=== PATIENT | female | born 1945 | race Caucasian/White ===

== ENCOUNTER → 2016-05-14 | Outpatient (CLI) | payer OTHER ==
[~2016-05-14] MED LIST: B-CO1CAP3 PO; CETI10TA84 PO; CHOL200010; DULA0.5I SQ; FLV1; GLIM4TAB2; HMLI SC; LISI20TA3 PO; LUTE20TA; ROSU5TAB PO; TRAM-10 PO; TRIA75TA
--- NOTE | 2016-05-14 08:24 | DIAGNOSTIC IMAGING REPORT ---
LEG LENGTH STUDY CLINICAL HISTORY: Back pain. FINDINGS: An AP radiograph of the lower extremities for a leg length examination is correlated with radiographs of the knees dated 01/19/2014. The skeletal structures are osteopenic. No fracture is identified in the right or left lower extremity. A left knee arthroplasty is new from the 2013 examination. The right lower extremity measures 87.4 cm, and the left lower extremity measures 88.1 cm as measured from the femoral head to the tibial plafond. There is no pelvic tilt identified. Lumbosacral spondylosis and scoliosis is partially imaged. The overlying soft tissues are normal as visualized. There is a nonobstructed abdominal bowel gas pattern. IMPRESSION: Mild leg length discrepancy as above. Electronically signed by: Juarez Thacker M.D. 05/14/2016 8:22 AM Dictated Date/Time: 05/14/2016 8:19 AM
== END | disposition home or self-care (01) ==
LOC: C.RAD 07:40
PROVIDERS: ATTEND Anesthesiology
DX: M54.5 Low back pain (principal)

== ENCOUNTER → 2016-06-12 | Outpatient (CLI) | payer OTHER ==
[2016-06-12 17:38] LABS: BASO % 0.9 %; BASO ABS # 0.06 K/uL (0-0.2); COMPLETE YES; EOS % 4.6 %; HEMATOCRIT 35.5 % (37-47); IG% 0.5 %; LYMPH % 31.7 %; LYMPH ABS # 2.06 K/uL (1.2-3.4); MEAN CELL VOLUME 96.5 fL (80-100); MEAN CORPUSCULAR HEMOGLOBIN 30.7 pg (25-34); MEAN CORPUSCULAR HGB CONC 31.8 g/dl (32-36); MEAN PLATELET VOLUME 9.6 fL (7.4-10.4); MONO % 10.6 %; NEUT % 51.7 %; PLATELET COUNT 212 K/uL (130-400); RED BLOOD COUNT 3.68 M/uL (4.2-5.4)
[2016-06-12 17:46] LABS: ALT/SGPT 25 U/L (12-78); BLOOD UREA NITROGEN 42 mg/dl (7-18); BUN/CREATININE RATIO 27.7 (10-20); CALCIUM 9.2 mg/dl (8.5-10.1); CARBON DIOXIDE 25 mmol/L (21-32); CHLORIDE 107 mmol/L (98-107); GLUCOSE 86 mg/dl (70-99); POTASSIUM 4.9 mmol/L (3.5-5.1); SODIUM 141 mmol/L (136-145)
[2016-06-12 17:48] LABS: ALB/GLOB RATIO 0.9 (0.9-2); ALKALINE PHOSPHATASE 92 U/L (45-117); AST/SGOT 16 U/L (15-37)
[2016-06-13 06:23] LABS: ESTIMATED AVERAGE GLUCOSE 134 mg/dl; HA1C FLAG Normal (Normal)
== END | disposition home or self-care (01) ==
LOC: C.LABBFT 14:04
PROVIDERS: ATTEND Internal Medicine
DX: E11.9 Type 2 diabetes mellitus without complications (principal); N18.3 Chronic kidney disease, stage 3 (moderate)

== ENCOUNTER → 2016-11-19 | Outpatient (CLI) | payer OTHER ==
--- NOTE | 2016-11-19 15:19 | DIAGNOSTIC IMAGING REPORT ---
RIGHT HIP UNILATERAL 2 VIEWS HISTORY: 70 years-old Female chronic right hip pain COMPARISON: None available TECHNIQUE: 2 views of the right hip FINDINGS: Moderate osteoarthritis involves the right hip with prominent osteophytic spurring along the superior lateral aspect of the acetabulum. Enthesophytes are seen at the greater trochanter. No acute fracture or dislocation is identified. Imaged right hemipelvis also appears intact. IMPRESSION: Moderate degenerative changes of the right hip without acute fracture or dislocation. The above report was generated using voice recognition software. It may contain grammatical, syntax or spelling errors. Electronically signed by: Arben Guerrero M.D. 11/19/2016 3:18 PM Dictated Date/Time: 11/19/2016 3:16 PM
== END | disposition home or self-care (01) ==
LOC: C.RADBC 14:36
PROVIDERS: ATTEND Physician Assistant
DX: M25.551 Pain in right hip (principal)

== ENCOUNTER → 2016-12-29 | Outpatient (CLI) | payer OTHER ==
[2016-12-29 15:46] LABS: BASO % 0.8 %; BASO ABS # 0.06 K/uL (0-0.2); COMPLETE YES; HEMATOCRIT 32.4 % (37-47); IG% 0.4 %; LYMPH % 22.8 %; LYMPH ABS # 1.67 K/uL (1.2-3.4); MEAN PLATELET VOLUME 9.2 fL (7.4-10.4); MONO % 6.3 %; NEUT % 65.7 %; PLATELET COUNT 221 K/uL (130-400); RED BLOOD COUNT 3.34 M/uL (4.2-5.4); WHITE BLOOD COUNT 7.31 K/uL (4.8-10.8)
[2016-12-29 15:46] LABS: URINE APPEARANCE CLEAR (CLEAR); URINE BILIRUBIN NEG (NEG); URINE COLOR YELLOW; URINE NITRITE NEG (NEG); URINE PH 6.5 (4.5-7.5); URINE SPECIFIC GRAVITY 1.016 (1.000-1.030); UROBILINOGEN NEG (NEG)
[2016-12-29 15:48] LABS: MANUAL MICROSCOPIC REQUIRED? NO; REVIEW REQ? NO
[2016-12-29 16:07] LABS: BLOOD UREA NITROGEN 34 mg/dl (7-18); BUN/CREATININE RATIO 22.4 (10-20); CALCIUM 9.2 mg/dl (8.5-10.1); CARBON DIOXIDE 26 mmol/L (21-32); CHLORIDE 108 mmol/L (98-107); GLUCOSE 80 mg/dl (70-99); POTASSIUM 4.8 mmol/L (3.5-5.1); SODIUM 138 mmol/L (136-145)
[2016-12-29 16:18] LABS: FERRITIN 219.8 ng/ml (8.0-388.0); TOTAL IRON BINDING CAPACITY 261 mcg/dl (250-450)
[2016-12-30 07:32] LABS: ESTIMATED AVERAGE GLUCOSE 128 mg/dl; HA1C FLAG Normal (Normal)
== END | disposition home or self-care (01) ==
LOC: C.LAB 14:41
PROVIDERS: ATTEND Internal Medicine
DX: E78.5 Hyperlipidemia, unspecified (principal); D64.9 Anemia, unspecified; N18.3 Chronic kidney disease, stage 3 (moderate); N28.9 Disorder of kidney and ureter, unspecified; E11.9 Type 2 diabetes mellitus without complications

== ENCOUNTER → 2017-06-11 | Outpatient (CLI) | payer OTHER ==
[2017-06-11 17:10] LABS: ALBUMIN 3.6 gm/dl (3.4-5.0); BLOOD UREA NITROGEN 46 mg/dl (7-18); CALCIUM 9.7 mg/dl (8.5-10.1); CARBON DIOXIDE 24 mmol/L (21-32); GLUCOSE 99 mg/dl (70-99); POTASSIUM 5.1 mmol/L (3.5-5.1); SODIUM 136 mmol/L (136-145)
[2017-06-11 17:13] LABS: ALKALINE PHOSPHATASE 87 U/L (45-117); ALT/SGPT 27 U/L (12-78); AST/SGOT 18 U/L (15-37); CHOLESTEROL 157 mg/dl (0-200); LDL CHOLESTEROL CALCULATED 85 mg/dl; TOTAL PROTEIN 7.2 gm/dl (6.4-8.2)
[2017-06-12 06:57] LABS: HEMOGLOBIN A1C 6.2 % (4.5-5.6)
== END | disposition home or self-care (01) ==
LOC: C.LABBFT 15:32
PROVIDERS: ATTEND Internal Medicine
DX: E78.5 Hyperlipidemia, unspecified (principal); N18.9 Chronic kidney disease, unspecified; E11.9 Type 2 diabetes mellitus without complications

== ENCOUNTER → 2017-12-10 | Outpatient (CLI) | payer OTHER ==
--- NOTE | 2017-12-13 13:10 | MAMMOGRAPHY REPORT ---
BILATERAL DIGITAL SCREENING MAMMOGRAM TOMOSYNTHESIS WITH CAD: 12/10/2017 CLINICAL HISTORY: Routine screening. Patient has no complaints. TECHNIQUE: The study was acquired using full field digital technology and interpreted from soft copy. Breast tomosynthesis in addition to standard 2D mammography was performed. Current study was also ev aluated with a Computer Aided Detection (CAD) system. COMPARISON: Comparison is made to exams dated: 01/02/2015 mammogram, 06/16/2012 mammogram, 08/19/2009 ma mmogram, 08/05/2009 mammogram - [facility], and 12/20/2007. BREAST COMPOSITION: There are scattered areas of fibroglandular density in both breasts. FINDINGS: There are grouped calcifications within the right inferior breast at approximately 5 to 6:00, for whi ch spot magnification views are recommended for further evaluation. The remainder of both breasts are stable compared to prior exams, without suspicious masses, calcific ations, or areas of architectural distortion noted. Left breast nodularity is stable compared to marilou or exams. IMPRESSION: ACR BI-RADS CATEGORY 0: INCOMPLETE EVALUATION: NEED ADDITIONAL IMAGING EVALUATION Right breast calcifications, for which additional imaging evaluation is recommended. The patient rodolfo l be called to schedule an appointment. Some breast cancers are not detected with mammography. A negative mammographic report should not eileen y biopsy if a clinically suggestive mass is present. Bernarda Montiel M.D. ah/:12/10/2017 15:54:16 Studio Associate: Olena Barboza, RT(R)(M), [facility] letter sent: Addl Imaging 0 BI-RADS Code: ACR BI-RADS Category 0: Incomplete Evaluation: Need Additional Imaging Evaluation
== END | disposition home or self-care (01) ==
LOC: C.MAMM 14:41
PROVIDERS: ATTEND Internal Medicine
DX: Z12.31 Encounter for screening mammogram for malignant neoplasm of breast (principal); R92.1 Mammographic calcification found on diagnostic imaging of breast

== ENCOUNTER 2018-05-11 08:02 | Observation (INO) ==
--- NOTE | 2018-04-29 15:18 | PAT Medication Instructions ---
Medication Instructions Date of Service April 29, 2018 Home Medications B-complex with vitamin C capsule 1 cap PO HS cetirizine 10 mg tablet 5 mg PO DAILY PRN dulaglutide 1.5 mg/0.5 mL 1.5 mg SQ .WEDNESDAY ml folic acid 1 mg tablet 1 mg PO HS glimepiride 4 mg tablet 4 - 6 mg PO HS tab insulin lispro (U-100) 100 unit/mL 5 units SQ BID PRN ml lisinopril 20 mg tablet 20 mg PO HS lutein 20 mg tablet 20 mg PO HS rosuvastatin 5 mg tablet 2.5 mg PO 4XWK tab tramadol 50 mg tablet 50 mg PO Q6H PRN dicyclomine 10 mg capsule 10 mg PO QID PRN cap cholecalciferol (vitamin D3) 5,000 unit PO 3XWK hydrochlorothiazide 50 mg PO HS lorazepam 1 - 2 tab PO HS PRN Continue as directed dulaglutide 1.5 mg/0.5 mL 1.5 mg SQ .WEDNESDAY ml rosuvastatin 5 mg tablet 2.5 mg PO 4XWK tab STOP taking 2 weeks before surgery (or as soon as possible if surgery is within 2 weeks) lutein 20 mg tablet 20 mg PO HS DO NOT take the morning of surgery cetirizine 10 mg tablet 5 mg PO DAILY PRN insulin lispro (U-100) 100 unit/mL 5 units SQ BID PRN ml dicyclomine 10 mg capsule 10 mg PO QID PRN cap cholecalciferol (vitamin D3) 5,000 unit PO 3XWK Take morning of surgery With a small sip of water, OTHERWISE NOTHING TO EAT OR DRINK AFTER MIDNIGHT: tramadol 50 mg tablet 50 mg PO Q6H PRN (okay to take up to 4 hours prior to surgery if needed) Take evening before surgery B-complex with vitamin C capsule 1 cap PO HS cetirizine 10 mg tablet 5 mg PO DAILY PRN (if needed) folic acid 1 mg tablet 1 mg PO HS glimepiride 4 mg tablet 4 - 6 mg PO HS tab insulin lispro (U-100) 100 unit/mL 5 units SQ BID PRN ml lisinopril 20 mg tablet 20 mg PO HS tramadol 50 mg tablet 50 mg PO Q6H PRN (if needed) dicyclomine 10 mg capsule 10 mg PO QID PRN cap (if needed) hydrochlorothiazide 50 mg PO HS lorazepam 1 - 2 tab PO HS PRN (if needed) Other Notes If you have any questions please call us at [phone] or [phone] or [phone] or [phone]
--- NOTE | 2018-05-02 13:54 | Anesthesiology Consultation ---
Date of Service May 02, 2018 Assessment & Plan (1) Encounter for pre-operative examination: Chart Review Chart Review: Acceptable Risk for Surgery and Patient seen in Pre Admission Testing Consults Requested none Teaching & Discussion Pre-Anesthesia Teaching/Discussion Notes: Instructed NPO after midnight before surgery, except medications with 15 cc of water. Medication instructions provided according to the PAT guidelines. History Surgery Operation Date: 05/11/18 11:00 Proposed Procedures p Right Breast Lumpectomy with Needle Localization and with Right [place] Lymph Node Biopsy (Injection Only) - Cliff Fang MD, FACS Height/Weight Height: 5 ft 4 in Weight: 108.6 kg Allergies Allergy/AdvReac Type Severity Reaction Status Date / Time Penicillins Allergy Mild RASH Verified 04/29/18 11:26 insulin detemir Allergy Unknown ANAPHYLAXIS Verified 04/29/18 11:26 insulin glargine Allergy Unknown ANAPHYLAXIS Verified 04/29/18 11:26 phenol Allergy Unknown ANAPHYLAXIS Verified 04/29/18 11:26 NSAIDS (Non-Steroidal AdvReac Severe GI Verified 04/29/18 11:26 Anti-Inflamma SYMPTOMS-GI BLEED Vlsykcm-Rzt-Fkt Reductase AdvReac Mild OTHER Verified 04/29/18 11:26 Inhibitor Medications Home Medications Medication Instructions Recorded Confirmed Last Taken B-complex with vitamin C capsule 1 cap PO HS 04/05/18 04/29/18 Unknown cetirizine 10 mg tablet 5 mg PO DAILY PRN 04/05/18 04/29/18 Unknown dulaglutide 1.5 mg/0.5 mL 1.5 mg SQ .WEDNESDAY ml 04/05/18 04/29/18 Unknown subcutaneous pen injector folic acid 1 mg tablet 1 mg PO HS 04/05/18 04/29/18 Unknown glimepiride 4 mg tablet 4 - 6 mg PO HS tab 04/05/18 04/29/18 Unknown insulin lispro (U-100) 100 unit/mL 5 units SQ BID PRN ml 04/05/18 04/29/18 Unknown subcutaneous cartridge lisinopril 20 mg tablet 20 mg PO HS 04/05/18 04/29/18 Unknown lutein 20 mg tablet 20 mg PO HS 04/05/18 04/29/18 Unknown rosuvastatin 5 mg tablet 2.5 mg PO 4XWK tab 04/05/18 04/29/18 Unknown tramadol 50 mg tablet 50 mg PO Q6H PRN 04/05/18 04/29/18 Unknown dicyclomine 10 mg capsule 10 mg PO QID PRN cap 04/07/18 04/29/18 Unknown cholecalciferol (vitamin D3) 5,000 unit PO 3XWK 04/29/18 04/29/18 Unknown [Vitamin D3] hydrochlorothiazide 50 mg PO HS 04/29/18 04/29/18 Unknown lorazepam 1 - 2 tab PO HS PRN 04/29/18 04/29/18 Unknown Past Medical History Medical History Osteoarthritis (Chronic) Chronic lumbar pain (Chronic) Greater trochanteric bursitis of both hips (Chronic) Myofascial pain (Chronic) Diabetes (Chronic) Chronic kidney disease STAGE 3 GERD (gastroesophageal reflux disease) HTN (hypertension) Hiatal hernia History of hysterectomy STILL HAS OVARIES IBS (irritable bowel syndrome) Leg length discrepancy Lumbar postlaminectomy syndrome Lumbar spondylosis Obesity PONV (postoperative nausea and vomiting) Right hip pain Sacroiliitis Past Surgical History Surgical History H/O arthroscopy of right knee H/O laminectomy L4-5 1975 H/O submucous nasal surgery X2 H/O total knee replacement LEFT H/O total knee replacement RIGHT H/O: hysterectomy History of bunionectomy of left great toe History of bunionectomy of left great toe History of colonoscopy History of dental surgery History of lumbar laminectomy History of sinus surgery History of tonsillectomy Past Anesthesia History No Hx of Anesthesia Complications and No Family Hx of Anesthesia Complications History of PONV Yes Motion Sickness Screening History of Motion Sickness: No Social History Smoking Status: Former smoker Do You Dip or Chew Tobacco: No Smoking End Date: QUIT 25-30 YEARS AGO Hx Alcohol Use: No Hx Substance Use: No substance use type: does not use Exercise / Class Metabolic Activity II 4-5 Yardwork/Stairs/Walk up hill (Able to climb FOS, laundry, dishes, yardwork, etc. Denies CP. Occasional SOB with excessive amounts of stairs. ) Review of Systems Patient denies chest pain, shortness of breath, reflux, cough, wheezing, palpitations. +BARRETT (with large amounts of stairs) +joint pain (back, hips, knees) Physical Exam Vital Signs BP: 138/79 P: 75 R: 14 T: 98.3 SPO2: 100% on RA ENMT Thyromental Distance: > or= 3.5 Finger Breadths (3.5) Mallampati Class: III Temporary partial plate on top due to implants she just had put in Neck normal visual inspection and trachea midline; neck extension not limited Respiratory normal respiratory effort Auscultation: lungs clear to auscultation bilaterally Cardiovascular Rate/Rhythm: regular rate and regular rhythm Heart Sounds: no murmur Vessels: no carotid bruit Psychiatric Orientation: alert and oriented x 3 Testing Electrocardiogram Date: 05/02/18 Findings: + NSR @ (72) When compared with ECG of 01/20/96, ventricular rate has decreased by 41bpm. Laboratory Results 05/02/18 14:32 05/02/18 14:32 Laboratory Tests 04/12/18 14:33 Hemoglobin A1c 6.5 H Going back several years, pts H/H and BUN/Cr are at baseline per [facility] records.
[2018-05-02 14:54] LABS: Basophils # (auto) 0.06 K/uL (0-0.2); Basophils % (auto) 0.7 %; Eosinophils % (auto) 3.6 %; Hematocrit (blood only) 34.1 % (37-47); Hemoglobin 10.8 g/dL (12.0-16.0); Immature Granulocytes # (auto) 0.08 K/uL (0.00-0.02); Lymphocytes # (auto) 2.22 K/uL (1.2-3.4); Lymphocytes % (auto) 26.7 %; Mean Corpuscular Hgb Conc 31.7 g/dL (32-36); Mean Corpuscular Volume 97.7 fL (80-100); Monocytes # (auto) 0.53 K/uL (0.11-0.59); Monocytes % (auto) 6.4 %; Neutrophils # (auto) 5.11 K/uL (1.4-6.5); Neutrophils % (auto) 61.6 %; Platelet Count 188 K/uL (130-400); RDW Coefficient of Variation 13.7 % (11.5-14.5); RDW Standard Deviation 48.3 fL (36.4-46.3); Red Blood Count 3.49 M/uL (4.2-5.4)
[2018-05-02 15:03] LABS: Calcium 9.3 mg/dl (8.5-10.1); Creatinine Clr Calc Pharmacy 44.1 ml/min; Est GFR (African American) 43.3; Est GFR (Non-African American) 37.4; Potassium 4.5 mmol/L (3.5-5.1)
[~2018-05-11 08:02] MED LIST changes: -B-CO1CAP3 PO; -CETI10TA84 PO; -CHOL200010; +CLINDAMYCIN 900 MG / 50ML D5W IV SCH; -DULA0.5I SQ; -FLV1; -GLIM4TAB2; -HMLI SC; -LISI20TA3 PO; -LUTE20TA; -ROSU5TAB PO; +SODIUM CHLORIDE 0.9% 1000ML IV SCH; -TRAM-10 PO; -TRIA75TA
--- NOTE | 2018-05-11 09:46 | Nuclear Medicine Report ---
LYMPHOSCINTIGRAPHY CLINICAL HISTORY: Right-sided breast cancer. PROCEDURE: Using standard sterile technique, 4 intradermal and one deep injection of 0.5 mCi of Lymph oseek was placed in the right breast. The patient tolerated the procedure well. There were no immedia te complications. The patient was subsequently transported to the surgical suite. No imaging was obta ined at the referring physician's request. IMPRESSION: Injection of 0.5 mCi of Lymphoseek in the right breast. Electronically signed by: Arben Guerrero M.D. 05/11/2018 9:45 AM
--- NOTE | 2018-05-11 10:07 | History & Physical Bridge Note ---
Date of Service May 11, 2018 History & Physical Bridge Note I have examined the patient, reviewed the History & Physical and in the interval since the performance of the History & Physical I have noted the following changes of clinical significance: no changes noted
[2018-05-11] MEDS ORDERED: ePHEDrine sulfate 50 MG/ML AMP IV PRN (10:41)
[2018-05-11] MEDS ORDERED: ATROPINE SULFATE 0.1 MG/ML 10ML SYR IV PRN (10:41)
[2018-05-11] MEDS ORDERED: ISOSULFAN BLUE 10 MG/ML VIAL 5 ML ONE (11:01)
[2018-05-11] MEDS ORDERED: BUPIVACAINE 0.5 % 5 MG/1 ML MPF 30ML VIAL ONE (11:01)
[2018-05-11] MEDS ORDERED: MIDAZOLAM HCL 1 MG/ML 2ML VIAL ONE (11:02)
[2018-05-11] MEDS ORDERED: fentaNYL citrate 100 MCG/2 ML VIAL ONE (11:02)
[2018-05-11] MEDS ORDERED: METHYLENE BLUE 0.5% 10 ML VIAL ONE (11:02)
[2018-05-11] MEDS ORDERED: ONDANSETRON INJ 2 MG/ML 2 ML VIAL ONE (11:35)
[2018-05-11] MEDS ORDERED: LIDOCAINE HCL 2% 2 ML VIAL/AMP(20MG/ML) INFIL ONE (11:35)
[2018-05-11] MEDS ORDERED: PROPOFOL IV EMULSION 10 MG/ML 20 ML VIAL IV ONE (11:35)
--- NOTE | 2018-05-11 12:40 | Operative Report ---
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 Any exceptions are noted below.
[2018-05-11] MEDS: HYDROmorphone INJ 1 MG/ML SYRINGE IV PRN ×4 (12:59→13:22)
[2018-05-11] MEDS ORDERED: ACETAMINOPHEN 1,000 MG/100 ML VIAL IV ONE (13:15)
--- NOTE | 2018-05-11 14:10 | Anesthesiology Progress Note ---
Date of Service May 11, 2018 Anesthesia Post Procedure Vital Signs Vital Signs: Temp Pulse Pulse Resp BP Pulse Ox 05/11/18 14:00 70 12 121/68 94 05/11/18 13:50 69 12 118/68 94 05/11/18 13:40 36.9 C 72 12 124/63 94 05/11/18 13:30 69 12 121/65 95 05/11/18 13:20 70 14 117/69 96 05/11/18 13:10 72 12 119/67 99 05/11/18 13:00 76 12 123/66 100 05/11/18 12:51 36.7 C 85 14 127/70 100 05/11/18 09:51 36.9 C 80 18 128/66 99 Pain Intensity Right Breast: Pain Intensity: 4 Notes Mental Status: alert / awake / arousable Patient Amnestic to Procedure: Yes Nausea / Vomiting: adequately controlled Pain: adequately controlled Airway Patency, RR, SpO2: stable & adequate BP & HR: stable & adequate Hydration State: stable & adequate Anesthetic Complications: no major complications apparent and Pt Satisfied with anesthetic care
[2018-05-11] MEDS ORDERED: LORazepam 0.5 MG TAB PO PRN (14:32)
[2018-05-11] MEDS ORDERED: ONDANSETRON INJ 2 MG/ML 2 ML VIAL IV PRN (14:32)
[2018-05-11] MEDS ORDERED: SODIUM CHLORIDE 0.9% 500 ML IV SCH (14:32)
[2018-05-11] MEDS ORDERED: HYDROmorphone INJ 0.5 MG/0.5 ML SYR IV PRN (14:32)
[2018-05-11] MEDS ORDERED: PROMETHAZINE HCL 12.5 MG in SODIUM CHLORIDE 0.9% 50 ML IV PRN (14:32)
[2018-05-11] MEDS ORDERED: ACETAMINOPHEN 325 MG TAB PO PRN (14:32)
[2018-05-11] MEDS ORDERED: HYDROCODONE/ACETAMOPHEN 5/325MG TAB PO PRN (14:32)
--- NOTE | 2018-05-11 15:04 | Mammography Report ---
NEEDLE LOCALIZATION RIGHT BREAST: 05/11/2018 CLINICAL HISTORY: Biopsy-proven DCIS in the right medial breast at approximately 3:00. PROCEDURE DESCRIPTION: Review of prior imaging shows the biopsied calcifications in the right 3:00 br east which were shown to represent DCIS. Another small cluster of calcifications was seen more later ally in the right breast, for which excision was also recommended. With imaging guidance, aseptic te chnique, and 1% lidocaine as the local anesthetic, a bracketed needle localization was performed of t he biopsy clip and residual calcifications in the right 3:00 breast as well as small cluster of calci fications located in the right central breast, using two 5 cm Segura 2 needles. The path of approach for both areas was caudocranial. The biopsy clip and residual calcifications are located along the distal portion of the wire, anterior to the wire, with the residual calcifications located proximal t o the cricket and the clip located distal to the cricket. The small cluster of calcifications located in t he right central breast is located along the distal portion of the more lateral wire, anterior to the tip of the wire. The needles were left in place. The patient tolerated the procedure without compli cation. COMPARISON: Comparison is made to exams dated: 04/08/2018 mammogram, 04/08/2018 stereotactic biopsy, 1 05/21/2017 mammogram, 12/10/2017 mammogram, 01/02/2015 mammogram, and 06/16/2012 mammogram - [facility]. IMPRESSION: NEEDLE LOCALIZATION Bracketed needle localization of residual calcifications and associated biopsy marker clip in the rig ht 3:00 breast and small cluster of calcifications in the right central breast. Bernarda Montiel M.D. ah/:05/11/2018 08:50:15 Production Broacher: Olena Todd RT(R)(M), [facility]
--- NOTE | 2018-05-11 15:04 | Mammography Report ---
SPECIMEN RIGHT BREAST: 05/11/2018 CLINICAL HISTORY: Status post right breast surgical excision. COMPARISON: Comparison is made to exams dated: 04/08/2018 mammogram, 04/08/2018 stereotactic biopsy, 1 05/21/2017 mammogram, 12/10/2017 mammogram, 01/02/2015 mammogram, and 06/16/2012 mammogram - [facility]. Findings: A radiograph was performed of the right breast surgical specimen. The localized biopsy cli p and calcifications are present within the specimen. Some of the residual calcifications extend sebastián se to one of the edges of the specimen, likely the superior edge of the specimen. Findings were disc ussed with Dr. Fang, and he reports he will be excising additional superior tissue. The intact needl e localization wires and needles are also present. IMPRESSION: SPECIMEN The imaged specimen contains the preoperativelylocalized calcifications and biopsy clip. Bernarda Montiel M.D. /:05/11/2018 12:26:18 Shove Up: RT Xavier(R)(M), [facility]
--- NOTE | 2018-05-11 15:55 | Consultation ---
Date of Consultation May 11, 2018 Assessment & Plan (1) Diabetes type 2, controlled: would not recommend using any insulin while here due to sever, anaphylactic allergy likely discharged tomorrow AM and she can take her Trulicity once home resume home medications on discharge utilize diabetic diet instructed RN that we would not be checking sugars, do not want her to receive insulin (2) Ductal carcinoma in situ (DCIS) of breast: s/p lumpectomy and SLN biopsy follow up with Dr. Fang in the office (3) Chronic lumbar pain: stable (4) HTN (hypertension): stable on lisinopril and HCTZ (5) Dyslipidemia: continue statin History of Present Illness Reason for Consultation: medical management Requesting Physician: Dr. Fang Attending Physician: Cliff Fang MD, [facility] History of Present Illness Patient is 72 yo female with history of DM type II, well controlled on Trulicity and Glimepiride, A1c of 6.1% and a history of HTN, dyslipidemia, presents after having a right breast lumpectomy and sentinel lymph node biopsy today with Dr. Fang. Tolerated procedure well, no complications, minimal blood loss. She has minimal pain currently. Breathing well, no chest pressure, no nausea. Discussed management of diabetes, she would prefer to not have any insulin while here, never needs it at home and she has a history of anaphylaxis with Lantus and Levemir. She has no history of CAD, stroke, arrhythmias. She has a family history of CAD with her father who suffered a heart attack. Allergies Allergy/AdvReac Type Severity Reaction Status Date / Time Penicillins Allergy Mild RASH Verified 05/11/18 09:48 insulin detemir Allergy Unknown ANAPHYLAXIS Verified 05/11/18 09:48 insulin glargine Allergy Unknown ANAPHYLAXIS Verified 05/11/18 09:48 NSAIDS (Non-Steroidal AdvReac Severe GI Verified 05/11/18 09:48 Anti-Inflamma SYMPTOMS-GI BLEED Uomwwna-Bec-Ltn Reductase AdvReac Mild OTHER Verified 05/11/18 09:48 Inhibitor Home Medications Home Medications Medication Instructions Recorded Confirmed Type B-complex with vitamin C capsule 1 cap PO HS 04/05/18 05/11/18 History cetirizine 10 mg tablet 5 mg PO DAILY PRN 04/05/18 05/11/18 History dulaglutide 1.5 mg/0.5 mL 1.5 mg SQ .WEDNESDAY ml 04/05/18 05/11/18 History subcutaneous pen injector folic acid 1 mg tablet 1 mg PO HS 04/05/18 05/11/18 History glimepiride 4 mg tablet 4 - 6 mg PO HS tab 04/05/18 05/11/18 History insulin lispro (U-100) 100 unit/mL 5 units SQ BID PRN ml 04/05/18 05/11/18 History subcutaneous cartridge lisinopril 20 mg tablet 20 mg PO HS 04/05/18 05/11/18 History lutein 20 mg tablet 20 mg PO HS 04/05/18 05/11/18 History rosuvastatin 5 mg tablet 2.5 mg PO 4XWK tab 04/05/18 05/11/18 History tramadol 50 mg tablet 50 mg PO Q6H PRN 04/05/18 05/11/18 History dicyclomine 10 mg capsule 10 mg PO QID PRN cap 04/07/18 05/11/18 History cholecalciferol (vitamin D3) 5,000 unit PO 3XWK 04/29/18 05/11/18 History [Vitamin D3] hydrochlorothiazide 50 mg PO HS 04/29/18 05/11/18 History lorazepam 1 - 2 tab PO HS PRN 04/29/18 05/11/18 History Patient History Family History Other CAD (coronary artery disease) Social History Current Living Situation: Alone Other Information That Helps Us Care for You: No Feels Safe at Home: Yes Safety Concerns: Feels Safe At This Time Smoking Status: Former smoker Do You Dip or Chew Tobacco: No Smoking End Date: QUIT 25-30 YEARS AGO Hx Alcohol Use: No Hx Substance Use: No Beliefs That Will Affect Care: None Preferred Language: Haitian Communication Ability: Effective [place] Farmer Required: No Review of Systems 10 systems reviewed, all negative except for some mild right breast and axillary pain. Denies chest pain, pressure. Denies dyspnea. Physical Exam 2 Vital Signs (Past 24 Hours): Last Vital Signs Temp 37.0 C 05/11/18 15:22 Pulse 68 05/11/18 15:22 Resp 18 05/11/18 15:22 BP 118/73 05/11/18 15:22 Pulse Ox 97 05/11/18 15:22 Constitutional: WD/WN, vitals as above Eyes: PERRL, conjunctivae normal, anicteric sclerae ENMT: external ear and nose normal, oropharynx normal Neck: trachea midline, no thyromegaly Respiratory: normal respiratory effort, lungs clear to auscultation Cardiovascular: RRR, no murmur, no edema Chest (Breasts): Breast: + breast tenderness; + abnormal inspection of breast (dressing applied to incision of lumpectomy) and + abnormal inspection of axilla (dressing applied) Gastrointestinal (Abdomen): normal bowel sounds, soft, nontender, no hepatosplenomegaly Musculoskeletal: no cyanosis or clubbing, extremities motor strength 5/5 Skin: no rashes, warm and dry Neurologic: patellar DTR's 2+ bilat, sensation intact and PERRL, EOMI, accommodation nl, no face palsy, no dysarthria Psychiatric: A+Ox3, euthymic affect Lymphatic: no cervical or axillary lymphadenopathy Results & Data Medications Administered Current Inpatient Medications Acetaminophen (Tylenol) 650 mg PO Q4H PRN PRN Reason: Pain Stop: 06/10/18 14:31 Hydrocodone Bitart/Acetaminophen ([place] 5/325) 1 tab PO 3XDQ4 PRN PRN Reason: Pain Stop: 05/25/18 14:31 Hydrocodone Bitart/Acetaminophen ([place] 5/325) 2 tab PO 3XDQ4 PRN; Protocol PRN Reason: Pain Stop: 05/25/18 14:31 Hydrochlorothiazide (Hctz) 50 mg PO HS MOIZ Stop: 06/10/18 20:59 Hydromorphone HCl (Dilaudid) 0.5 mg IV Q3HWA PRN PRN Reason: Severe Pain Stop: 05/25/18 14:31 Clindamycin Phosphate 600 mg/ (Dextrose) 54 mls @ 100 mls/hr IV Q8H MOIZ Stop: 05/21/18 19:59 Sodium Chloride (Nss) 500 mls @ 50 mls/hr IV .Q10H MOIZ Stop: 05/11/18 16:00 Promethazine HCl 12.5 mg/ (Sodium Chloride) 50.5 mls @ 204 mls/hr IV Q6H PRN PRN Reason: Nausea And Vomiting Stop: 06/10/18 14:31 Lisinopril (Zestril) 20 mg PO HS MOIZ Stop: 06/10/18 20:59 Lorazepam (Ativan) 0.5 mg PO HS PRN PRN Reason: Sleep Stop: 06/10/18 14:31 Ondansetron HCl (Zofran) 4 mg IV 4XDQ4H PRN PRN Reason: Nausea Stop: 06/10/18 14:31
--- NOTE | 2018-05-11 15:56 | Operative Report ---
DATE OF OPERATION: 05/11/2018 NAME OF OPERATION: Right lumpectomy with sentinel lymph node biopsy. PREOPERATIVE DIAGNOSIS: Ductal carcinoma in situ, right breast. POSTOPERATIVE DIAGNOSIS: Ductal carcinoma in situ, right breast. STAFF SURGEON: Dr. Fang. SNOUT PULLER: Osvaldo Montero PA-C. ANESTHESIA: General. DESCRIPTION OF PROCEDURE: The patient was brought in the Operating Room and placed on the operating table in supine position. Her right arm was extended on an arm board. Right axilla and breast were prepped and draped in usual fashion. She had 2 needles placed inferior, anterior in the breast below the areola. Initially the axilla was approached. A 0.5% plain Marcaine was used to anesthetize skin and subcutaneous tissue. Incision made using the Neoprobe. We dissected deeply down into the axilla finding the lymph node, sending it for frozen section. The frozen section was negative. During the frozen section, we performed lumpectomy making an elliptical incision around both needles in the inferior-anterior breast carrying dissection down around both needles and excising the tissue. The left breast tissue was then marked. The 2 needles/skin were anterior/inferior, long silk lateral, short silk medial, plain suture superior, methylene blue deep. Additional inferior/posterior tissue was taken, a long silk suture lateral, short silk suture medial, methylene blue new margin. Additional anterior/superior tissue was taken, long silk suture lateral, short silk suture medial, methylene blue new margin. Then, I took additional deep/medial tissue which is at the end of the medial needle and marked it with methylene blue as new margin. At this point, both wounds were reapproximated deep tissue using 2-0 plain suture, then the skin in the axilla using 4-0 nylon suture, skin in the breast using subcuticular 4-0 Monocryl with Steri-Strips. Dressings applied and the patient transferred to Recovery Room in stable condition. My engineer second assistant helped with prepping, draping, excision of the lymph node and breast tissue and closure of the wounds. I attest to the content of the Intraoperative Record and any orders documented therein. Any exception s are noted below.
[2018-05-11] MEDS: HYDROCODONE/ACETAMOPHEN 5/325MG TAB PO PRN (16:01)
[2018-05-11] MEDS: CLINDAMYCIN 600 MG in DEXTROSE 5% 50 ML IV SCH (20:06)
[2018-05-11] MEDS ORDERED: LISINOPRIL 20 MG TAB PO SCH (21:00)
[2018-05-12] MEDS: CLINDAMYCIN 600 MG in DEXTROSE 5% 50 ML IV SCH (03:57)
[2018-05-12 07:10] VITALS: BP 100/63; PULSE 67; TEMP 98.4; O2SAT 94
[2018-05-12] MEDS: HYDROCODONE/ACETAMOPHEN 5/325MG TAB PO PRN (08:45)
--- NOTE | 2018-05-12 09:05 | Discharge Summary ---
DATE OF DISCHARGE: 05/12/2018 PRINCIPAL DIAGNOSIS: Right breast ductal carcinoma in situ. PROCEDURES: The patient underwent a right breast lumpectomy with sentinel lymph node biopsy. 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 HOSPITAL COURSE: The patient was brought into the hospital on 05/11/2018 where she underwent initial needle localization and breast injection for sentinel lymph node biopsy and then taken to the operating room where she underwent sentinel lymph node biopsy which was negative on frozen section and right lumpectomy. She tolerated the procedure very well, has done well overnight and is felt stable for discharge home today to be followed in the surgical clinic next week.
--- NOTE | 2018-05-12 13:32 | Anesthesiology Progress Note ---
Date of Service May 12, 2018 Anesthesia Post Procedure Vital Signs Vital Signs: Temp Pulse Pulse Resp BP Pulse Ox 05/12/18 08:19 36.9 C 67 16 100/63 94 05/12/18 07:08 36.9 C 67 16 100/63 94 05/12/18 03:48 36.7 C 68 16 113/72 95 05/11/18 22:54 36.9 C 59 L 16 107/63 96 05/11/18 20:11 115/74 05/11/18 19:06 37.1 C 80 19 124/69 96 05/11/18 17:16 36.7 C 70 19 134/78 97 05/11/18 16:29 36.4 C L 70 17 142/84 H 95 05/11/18 15:22 37.0 C 68 18 118/73 97 05/11/18 14:53 36.7 C 66 16 112/70 96 05/11/18 14:20 75 16 121/76 95 05/11/18 14:00 70 12 121/68 94 05/11/18 13:50 69 12 118/68 94 05/11/18 13:40 36.9 C 72 12 124/63 94 Pain Intensity Right Breast: Pain Intensity: 6 Notes Mental Status: alert / awake / arousable and participated in evaluation Patient Amnestic to Procedure: Yes Nausea / Vomiting: see Notes below Pain: adequately controlled Airway Patency, RR, SpO2: stable & adequate BP & HR: stable & adequate Hydration State: stable & adequate Anesthetic Complications: no major complications apparent and Pt Satisfied with anesthetic care
== END 2018-05-12 09:50 | disposition home or self-care (01) ==
LOC: 3N 08:02 → ASU 08:02 → EDSTATUS 11:00